=== PATIENT | male | born 1950 | race Caucasian/White ===

== ENCOUNTER 2018-09-01 13:20 | Inpatient (IN) | payer OTHER ==
[~2018-09-01] VITALS: Ht 177.8 cm; Wt 111.5 kg
[2018-09-01 13:48] LABS: BASOPHILS ABSOLUTE AUTO 0.07 K/mm3 (0.00-0.23); BASOPHILS PERCENT AUTO 0 % (0-2); EOSINOPHILS ABSOLUTE AUTO 0.02 K/mm3 (0.00-0.68); EOSINOPHILS PERCENT AUTO 0 % (0-6); IMMATURE GRAN ABSOLUTE AUTO 0.22 K/mm3 (0.00-0.10); IMMATURE GRAN PERCENT AUTO 1 % (0-1); LYMPHOCYTES ABSOLUTE AUTO 2.45 K/mm3 (0.84-5.20); LYMPHOCYTES PERCENT AUTO 12 % (21-46); MONOCYTES PERCENT AUTO 12 % (4-13); Mean Corpuscular HGB 33.6 pg (26.0-34.0); Mean Corpuscular HGB Conc 35.1 g/dL (31.5-36.5); Mean Corpuscular Volume 96 fL (80-100); Mean Platelet Volume 8.6 fL (9.1-12.4); NEUTROPHILS ABSOLUTE AUTO 15.14 K/mm3 (1.96-9.15); NEUTROPHILS PERCENT AUTO 75 % (41-73); NRBC ABSOLUTE 0.02 K/mm3 (0.00-0.02); NRBC Auto 0.1 /100 WBC (0.0-0.2); Platelet Count 171 K/mm3 (150-400); RDW Coefficient Variation 15.3 % (11.7-14.2); RDW Standard Deviation 52.5 fL (35.1-46.3); Red Blood Cell Count 3.87 M/mm3 (4.30-5.90)
[2018-09-01] MEDS ORDERED: [UNRECOGNIZED DRUG - OTHER] (13:48)
[2018-09-01 14:16] LABS: Alanine Aminotransfer (ALT/SGP 97 U/L (12-78); Albumin, Blood 3.9 g/dL (3.4-5.0); Albumin/Globulin Ratio 0.8 (0.8-1.8); Alk Phos 105 U/L (50-136); Anion Gap 14 mmol/L (6-16); Aspartate Aminotrans (AST/SGOT 224 U/L (12-37); Bilirubin, Total 6.7 mg/dL (0.1-1.0); Blood Urea Nitrogen 64 mg/dL (8-24); Bun/Creatinine Ratio 17.3 (12.0-20.0); CO2, Blood 21 mmol/L (21-32); Calcium, Blood 9.7 mg/dL (8.5-10.1); Chloride, Blood 99 mmol/L (98-108); Creatinine, Blood 3.71 mg/dL (0.60-1.20); Ethanol (Alcohol), Blood, Med <3 mg/dL; Globulin, Blood 4.7 g/dL (2.2-4.0); Glomerular Filtration Rate 17 (60-); Glucose, Blood 101 mg/dL (70-99); Potassium, Blood 3.8 mmol/L (3.5-5.5); Sodium, Blood 134 mmol/L (136-145); Total Protein, Blood 8.6 g/dL (6.4-8.2)
[2018-09-01 14:19] LABS: Thyroid Stimulating Hormone 0.886 uIU/mL (0.360-4.800)
[2018-09-01 14:21] LABS: Acetaminophen, Random <2.0 ug/mL (10.0-30.0); Salicylate <1.7 mg/dL (2.8-20.0)
[2018-09-01 15:36] LABS: Source, Urine Clean Catch
[2018-09-01 15:40] LABS: Appearance, Urine Hazy (Clear); Blood, Urine 5+ (Neg); Color, Urine Amber (P-Yellow); Glucose Qualitative, Urine Neg (Neg); Ketones, Urine 2+ (Neg); Leukocyte Esterase, Urine 1+ (Neg); Nitrite, Urine Pos (Neg); Protein, Urine 2+ (Neg); Specific Gravity, Urine 1.025 (1.003-1.022); Urobilinogen, Urine 3+ (Normal)
[2018-09-01 16:03] LABS: U Amphetamine Screen DETECTED; U Barbituate Screen Not Detected; U Benzodiazapine Screen Not Detected; U Buprenorphine Screen Not Detected; U Cannabinoids Screen DETECTED; U Cocaine Screen Not Detected; U Methadone Screen Not Detected; U Methamphetamine Screen DETECTED; U Opiates Screen Not Detected; U Oxycodone Screen DETECTED; U Phencyclidine Screen Not Detected
[2018-09-01 16:04] LABS: Bilirubin, Urine 2+ (Neg); U Propoxyphene Screen Not Detected
[2018-09-01 16:07] LABS: Bacteria Many /hpf; Squamous Epithelial Cells Many /hpf (Few)
[2018-09-01 16:08] LABS: Hyaline Casts 0-2 /lpf (0-2)
[2018-09-01] MEDS ORDERED: AMLO5 PO (16:10)
[2018-09-01] MEDS ORDERED: DUTA.5 PO (16:12)
[2018-09-01 16:52] LABS: Creatine Kinase MB Index 0.6 (0.0-4.0)
[2018-09-01 17:02] LABS: International Normalized Ratio 1.3; Prothrombin Time Results 13.5 Sec (9.7-11.5)
[2018-09-01 17:05] LABS: Phosphorus, Blood 5.1 mg/dL (2.5-4.9)
[2018-09-01 17:07] LABS: Magnesium, Blood 1.9 mg/dL (1.6-2.4); Uric Acid, Blood 10.3 mg/dL (3.5-7.2)
[2018-09-01 17:13] LABS: Prostate Specific Antigen 0.183 ng/mL (0.000-4.000)
[2018-09-01 17:15] LABS: Sodium, Urine, Random 31 mmol/L (20-110)
[2018-09-01 17:22] LABS: Creatinine, Urine Random >400.00 mg/dL (27.00-270.00)
--- NOTE | 2018-09-01 19:15 | NUR ---
PT ARRIVED TO ICU 14 FROM ER VIA GURNEY. ACCOMPANIED BY NETWORK SYSTEMS CONSULTANT AND SECURITY. PT IS DROWSY AND HAS GARBLED SPEECH. PT RECEIVED SEDATING MEDS IN ER DUE TO AGITATION. UNABLE TO GET ANY QUESTIONS ANSWERED FROM PT AT THIS TIME.
[2018-09-01 20:51] LABS: Albumin, Blood 2.7 g/dL (3.4-5.0); Albumin/Globulin Ratio 0.8 (0.8-1.8); Bilirubin, Total 4.2 mg/dL (0.1-1.0); Bun/Creatinine Ratio 25.2 (12.0-20.0); Calcium, Blood 8.3 mg/dL (8.5-10.1); Creatinine, Blood 2.38 mg/dL (0.60-1.20); Globulin, Blood 3.2 g/dL (2.2-4.0); Potassium, Blood 3.7 mmol/L (3.5-5.5); Total Protein, Blood 5.9 g/dL (6.4-8.2)
[2018-09-02 02:33] LABS: Source, Urine Clean Catch
--- NOTE | 2018-09-02 02:36 | NUR ---
PT WAKING UP AND SPEECH IS MORE CLEAR. STILL SLURRED. WAS ABLE TO USE URINAL WITH ASSISTANCE AND IS FOLLOWING SIMPLE COMMANDS. GOES BACK TO SLEEP QUICKLY.
[2018-09-02 02:43] LABS: Bilirubin, Urine Neg (Neg); Blood, Urine 3+ (Neg); Glucose Qualitative, Urine Neg (Neg); Ketones, Urine 1+ (Neg); Leukocyte Esterase, Urine 1+ (Neg); Nitrite, Urine Neg (Neg); Protein, Urine 2+ (Neg); Urobilinogen, Urine 2+ (Normal)
[2018-09-02 02:50] LABS: Appearance, Urine Clear (Clear); Color, Urine Amber (P-Yellow)
[2018-09-02 02:51] LABS: Bacteria Rare /hpf; Red Blood Cells, Urine 0-2 /hpf (0-2); Squamous Epithelial Cells Rare /hpf (Few); White Blood Cells, Urine 0-2 /hpf (0-5)
[2018-09-02 03:18] LABS: BASOPHILS ABSOLUTE AUTO 0.02 K/mm3 (0.00-0.23); BASOPHILS PERCENT AUTO 0 % (0-2); EOSINOPHILS ABSOLUTE AUTO 0.07 K/mm3 (0.00-0.68); EOSINOPHILS PERCENT AUTO 1 % (0-6); Hematocrit 27.5 % (37.0-53.0); Hemoglobin 9.5 g/dL (13.5-17.5); IMMATURE GRAN ABSOLUTE AUTO 0.04 K/mm3 (0.00-0.10); IMMATURE GRAN PERCENT AUTO 1 % (0-1); LYMPHOCYTES ABSOLUTE AUTO 1.76 K/mm3 (0.84-5.20); LYMPHOCYTES PERCENT AUTO 22 % (21-46); MONOCYTES ABSOLUTE AUTO 1.04 K/mm3 (0.16-1.47); MONOCYTES PERCENT AUTO 13 % (4-13); Mean Corpuscular HGB 34.1 pg (26.0-34.0); Mean Corpuscular HGB Conc 34.5 g/dL (31.5-36.5); Mean Platelet Volume 8.2 fL (9.1-12.4); NEUTROPHILS ABSOLUTE AUTO 5.25 K/mm3 (1.96-9.15); NEUTROPHILS PERCENT AUTO 64 % (41-73); Platelet Count 93 K/mm3 (150-400); RDW Coefficient Variation 15.2 % (11.7-14.2); RDW Standard Deviation 53.6 fL (35.1-46.3); Red Blood Cell Count 2.79 M/mm3 (4.30-5.90); White Blood Cell Count 8.18 K/mm3 (4.00-11.30)
[2018-09-02 03:25] LABS: Mean Corpuscular Volume 99 fL (80-100)
[2018-09-02 03:39] LABS: Albumin, Blood 2.5 g/dL (3.4-5.0); Albumin/Globulin Ratio 0.8 (0.8-1.8); Bilirubin, Total 3.6 mg/dL (0.1-1.0); Bun/Creatinine Ratio 29.5 (12.0-20.0); Creatinine, Blood 1.83 mg/dL (0.60-1.20); Globulin, Blood 3.1 g/dL (2.2-4.0); Potassium, Blood 3.3 mmol/L (3.5-5.5); Total Protein, Blood 5.6 g/dL (6.4-8.2)
--- NOTE | 2018-09-02 07:59 | NUR ---
0700-ASSUMED CARE OF PT. PT IS SLEEPING BUT AROUSABLE TO VOICE. PT IS FOLLOWING COMMANDS. ALERT AND ORIENTED. DENIES PAIN AT THIS TIME. 0802-CANDY BUTCHER AT BEDSIDE AT THIS TIME.
--- NOTE | 2018-09-02 10:40 | NUR ---
PT'S SON MOHINI UPDATED. PT WAS ABLE TO RECOGNIZE HIM. ASKED PT IF IT WAS OKAY FOR THIS NURSE TO GIVE INFO TO MOHINI, PT STATED "I DON'T CARE."
--- NOTE | 2018-09-02 11:08 | NUR ---
DR. TORRES CAME BY TO TALK PT AND FAMILY. DR. TORRES WAS UPDATED OF PT'S STATUS. PT STATES HE DRINKS VODKA 3X PER WEEK. WHEN ASKED ABOUT HOW MUCH HE DRINKS PT STATES "UNTIL I GET FULL."
--- NOTE | 2018-09-02 17:38 | NUR ---
SHIFT SUMMARY: PT HAS BEEN SLEEPING MOST OF THE DAY. NO ETOH WITHDRAWAL NOTED. PT IS ALERT AND ORIENTED.
--- NOTE | 2018-09-02 21:00 | NUR ---
PT AROUSES FROM SLEEP TO VOICE. A/O AND APPROPRIATE CONVERSATION. PT FOLLOWS COMMANDS AND IS PLEASANT. NO REQUESTS AT THIS TIME. MOVES SELF IN BED INDEP AND USES URINAL INDEP.
[2018-09-03 03:51] LABS: BASOPHILS ABSOLUTE AUTO 0.02 K/mm3 (0.00-0.23); BASOPHILS PERCENT AUTO 0 % (0-2); EOSINOPHILS ABSOLUTE AUTO 0.09 K/mm3 (0.00-0.68); EOSINOPHILS PERCENT AUTO 2 % (0-6); Hematocrit 30.6 % (37.0-53.0); Hemoglobin 10.2 g/dL (13.5-17.5); IMMATURE GRAN ABSOLUTE AUTO 0.02 K/mm3 (0.00-0.10); IMMATURE GRAN PERCENT AUTO 0 % (0-1); LYMPHOCYTES ABSOLUTE AUTO 1.04 K/mm3 (0.84-5.20); LYMPHOCYTES PERCENT AUTO 22 % (21-46); MONOCYTES ABSOLUTE AUTO 0.75 K/mm3 (0.16-1.47); MONOCYTES PERCENT AUTO 16 % (4-13); Mean Corpuscular HGB 33.8 pg (26.0-34.0); Mean Corpuscular HGB Conc 33.3 g/dL (31.5-36.5); Mean Corpuscular Volume 101 fL (80-100); Mean Platelet Volume 8.5 fL (9.1-12.4); NEUTROPHILS ABSOLUTE AUTO 2.83 K/mm3 (1.96-9.15); NEUTROPHILS PERCENT AUTO 60 % (41-73); Platelet Count 89 K/mm3 (150-400); RDW Coefficient Variation 15.4 % (11.7-14.2); RDW Standard Deviation 54.7 fL (35.1-46.3); Red Blood Cell Count 3.02 M/mm3 (4.30-5.90); White Blood Cell Count 4.75 K/mm3 (4.00-11.30)
[2018-09-03 04:07] LABS: Anion Gap 7 mmol/L (6-16); Blood Urea Nitrogen 37 mg/dL (8-24); Bun/Creatinine Ratio 31.9 (12.0-20.0); CO2, Blood 23 mmol/L (21-32); CPK Creatine Kinase 879 U/L (39-308); Calcium, Blood 7.6 mg/dL (8.5-10.1); Chloride, Blood 110 mmol/L (98-108); Creatinine, Blood 1.16 mg/dL (0.60-1.20); Glomerular Filtration Rate >60 (60-); Glucose, Blood 94 mg/dL (70-99); Magnesium, Blood 2.4 mg/dL (1.6-2.4); Potassium, Blood 3.5 mmol/L (3.5-5.5); Sodium, Blood 140 mmol/L (136-145)
--- NOTE | 2018-09-03 06:01 | NUR ---
SUMMARY PT RESTING IN BED. A/O TO PERSON AND PLACE. FOLLOWS COMMANDS AND IS PLEASANT. GOT OOB THIS AM TO THE TOILET WITH MINIMAL ASSIST. HAS SLEPT MOST OF THE NIGHT. NO SIGN OF DISTRESS.
--- NOTE | 2018-09-03 07:33 | NUR ---
ASSUMED CARE REPORT FROM SHAE FUENTES. PT A&O. WOULD LIKE TO GO HOME TODAY. NEEDS TO MOVE HIS MOTOR HOME. WHEN ASKED WHAT BROUGHT HIM TO THE HOSPITAL, HE SAYS TOO MANY DRUGS.
--- NOTE | 2018-09-03 09:39 | NUR ---
PATIENT OOB TO CHAIR, UP AD LYNN IN ROOM. CALLED [id number] AND SHE WOULD LIKE TO PICK HIM UP BETWEEN 1130 AND 1200
--- NOTE | 2018-09-03 10:00 | NUR ---
AMBULATED TO SHOWER WITH REFINERY OPERATOR HELPER
--- NOTE | 2018-09-03 10:35 | NUR ---
JONAH WITH CARE MANAGEMENT IN TO SEE PATIENT. WILL SET HIM UP FOR PRIMARY CARE.
--- NOTE | 2018-09-03 11:18 | NUR ---
DISCHARGE INSTRUCTIONS GIVEN AND ACKNOWLEDGED. PIV'S X2 REMOVED WNL. [id number] WILL COLLAR CLOSER LOCKSTITCH OUT FRONT
== END 2018-09-03 11:25 | disposition home or self-care (01) | DRG 92 ==
LOC: ER 13:20 → ICUW 17:37
PROVIDERS: Internal Medicine; Nurse Practitioner Acute Care; Physician Assistant; ADMIT Internal Medicine
DX: G92 Toxic encephalopathy (principal); N17.9 Acute kidney failure, unspecified; R65.10 Systemic inflammatory response syndrome (SIRS) of non-infectious origin without acute organ dysfunction; M26.82 Posterior soft tissue impingement; F15.10 Other stimulant abuse, uncomplicated; R74.0 Nonspecific elevation of levels of transaminase and lactic acid dehydrogenase [LDH]; E86.0 Dehydration; F10.10 Alcohol abuse, uncomplicated
CPT/HCPCS: 36415; 70450; 71046; 76770; 80048; 80053; 81001; 82140; 82550; 82553; 82570; 83605; 83690; 83735; 83880; 84100; 84153; 84300; 84443; 84550; 85025; 85610; 87040; 87086; 93005; 93010; 96365; 96366; 96375; 99285-25; C9113; G0480; J0744; J1200; J1630; J1644; J2060; J3411; J3475; J7030; J7042; J7120

== ENCOUNTER → 2018-12-20 | Outpatient (CLI) | payer OTHER ==
[~2018-12-20] MED LIST: AMLO5 PO; DUTA.5 PO; [UNRECOGNIZED DRUG - OTHER]
[2018-12-20 13:17] LABS: BASOPHILS ABSOLUTE AUTO 0.02 K/mm3 (0.00-0.23); BASOPHILS PERCENT AUTO 0 % (0-2); EOSINOPHILS ABSOLUTE AUTO 0.05 K/mm3 (0.00-0.68); EOSINOPHILS PERCENT AUTO 1 % (0-6); Hematocrit 36.3 % (37.0-53.0); Hemoglobin 11.9 g/dL (13.5-17.5); IMMATURE GRAN ABSOLUTE AUTO 0.01 K/mm3 (0.00-0.10); IMMATURE GRAN PERCENT AUTO 0 % (0-1); LYMPHOCYTES PERCENT AUTO 23 % (21-46); MONOCYTES ABSOLUTE AUTO 0.53 K/mm3 (0.16-1.47); MONOCYTES PERCENT AUTO 10 % (4-13); Mean Corpuscular HGB 33.2 pg (26.0-34.0); Mean Corpuscular HGB Conc 32.8 g/dL (31.5-36.5); Mean Corpuscular Volume 101 fL (80-100); Mean Platelet Volume 8.9 fL (9.1-12.4); NEUTROPHILS ABSOLUTE AUTO 3.36 K/mm3 (1.96-9.15); NEUTROPHILS PERCENT AUTO 65 % (41-73); RDW Coefficient Variation 15.2 % (11.7-14.2); RDW Standard Deviation 56.4 fL (35.1-46.3); Red Blood Cell Count 3.58 M/mm3 (4.30-5.90); White Blood Cell Count 5.17 K/mm3 (4.00-11.30)
[2018-12-20 13:21] LABS: Platelet Count 82 K/mm3 (150-400)
[2018-12-20 13:55] LABS: Alanine Aminotransfer (ALT/SGP 58 U/L (12-78); Albumin, Blood 2.8 g/dL (3.4-5.0); Albumin/Globulin Ratio 0.7 (0.8-1.8); Alk Phos 96 U/L (50-136); Anion Gap 5 mmol/L (6-16); Aspartate Aminotrans (AST/SGOT 84 U/L (12-37); Bilirubin, Total 1.9 mg/dL (0.1-1.0); Blood Urea Nitrogen 15 mg/dL (8-24); Bun/Creatinine Ratio 19.2 (12.0-20.0); CO2, Blood 28 mmol/L (21-32); Calcium, Blood 8.6 mg/dL (8.5-10.1); Chloride, Blood 107 mmol/L (98-108); Creatinine, Blood 0.78 mg/dL (0.60-1.20); Globulin, Blood 4.1 g/dL (2.2-4.0); Glomerular Filtration Rate >60 (60-); Glucose, Blood 137 mg/dL (70-99); Potassium, Blood 3.8 mmol/L (3.5-5.5); Sodium, Blood 140 mmol/L (136-145); Total Protein, Blood 6.9 g/dL (6.4-8.2)
== END ==
LOC: LAB 12:14 → LAB SHORT 12:14
PROVIDERS: Nurse Practitioner Family
DX: R35.1 Nocturia (principal); I10 Essential (primary) hypertension
CPT/HCPCS: 36415; 80053; 84153; 84154; 85025

== ENCOUNTER → 2019-01-01 | Outpatient (CLI) | payer OTHER ==
[2019-01-01 23:55] LABS: Stool Occult Bld Immuno 1 Positive (NEGATIVE)
== END | disposition home or self-care (01) ==
LOC: LAB 11:33 → LAB SHORT 11:33
PROVIDERS: Nurse Practitioner Family
DX: Z12.11 Encounter for screening for malignant neoplasm of colon (principal)
CPT/HCPCS: G0328